=== PATIENT | female | born 1930 | race Hispanic/Latino ===

== ENCOUNTER 2019-10-31 05:57 | Day surgery (SDC) | payer OTHER ==
[2019-10-31] VITALS (9 sets, daily range): BP systolic 110–164; BP diastolic 41–94
--- NOTE | 2019-10-31 06:20 | NUR ---
PRE-PROCEDURE RECEIVED FROM HOME TO DAY 15 FOR SCHEDULED RIGHT AND LEFT HEART CATH. AWAKE IN NO ACUTE DISTRESS. DENIES CHEST PAIN AT PRESENT TIME. CONNECTED TO CONTINUOUS CARDIOPULMONARY MONITORING. SIDE RAILS UP X2, BED IN LOWEST POSITION, AND CALL LIGHT W/IN REACH. MURMUR AUSCULTATED.
[2019-10-31 07:14] LABS: BASOPHILS % (AUTO) 0.4 % (0.0-5.0); EOSINOPHILS % (AUTO) 2.3 % (0.0-8.0); HEMATOCRIT 35.2 % (36-48); LYMPHOCYTES % (AUTO) 18.2 % (21.0-51.0); MEAN CORPUSCULAR HEMOGLOBIN 27.5 pg (27.0-33.0); MEAN CORPUSCULAR HGB CONC 32.4 g/dL (32.0-36.0); MEAN CORPUSCULAR VOLUME 84.8 fL (79-99); MONOCYTES % (AUTO) 8.1 % (3.0-13.0); NEUTROPHILS % (AUTO) 70.8 % (40.0-77.0); PLATELET COUNT (AUTO) 191 K/uL (130-400); RED BLOOD CELL COUNT(AUTO) 4.15 MIL/uL (4.00-5.50); RED CELL DISTRIBUTION WIDTH 12.6 % (11.0-15.5); WHITE BLOOD COUNT (AUTO) 5.7 K/uL (4.8-10.8)
[2019-10-31 07:15] LABS: APPEARANCE,URINE Clear (CLEAR); BILIRUBIN,URINE Negative (NEGATIVE); COLOR,URINE Yellow (YELLOW); GLUCOSE, URINE (UA) Negative (NEGATIVE); KETONES,URINE Negative (NEGATIVE); LEUKOCYTE ESTERASE ,URINE Small (NEGATIVE); NITRATE,URINE Negative (NEGATIVE); OCCULT BLOOD,URINE Negative (NEGATIVE); PROTEIN,URINE Negative (NEGATIVE)
[2019-10-31 07:23] LABS: BACTERIA,URINE Rare /HPF (None Seen); RBC,URINE 0-1 /HPF (0-1); SQUAMOUS EPITHELIAL CELL,UR Moderate /HPF (0-2)
[2019-10-31 07:25] LABS: CREATININE 1.1 mg/dL (0.5-1.5); POTASSIUM 3.7 mmol/L (3.5-5.1)
[2019-10-31 07:27] LABS: INR 0.95 (0.85-1.15); PARTIAL THROMBOPLASTIN TIME 27.2 SEC (26.3-35.5); PROTHROMBIN TIME 10.3 SEC (9.6-11.6)
[2019-10-31] MEDS ORDERED: SODIUM CHLORIDE 0.9% 1000ML 1,000 ML IV ONE (08:35)
[2019-10-31] MEDS ORDERED: ALEN70TA69 PO (08:39)
[2019-10-31] MEDS ORDERED: SERT25TA5 PO (08:39)
[2019-10-31] MEDS ORDERED: HYDR12.54 PO (08:39)
[2019-10-31] MEDS ORDERED: SIMV-43 PO (08:39)
[2019-10-31] MEDS ORDERED: BIVALIRUDIN 250 MG/VIAL IV ONE (09:21)
[2019-10-31] MEDS ORDERED: NITROGLYCERIN 2 MG/VIAL VIAL IV ONE (09:22)
[2019-10-31] MEDS ORDERED: IOHEXOL-350 50ML VIAL IV ONE (09:22)
[2019-10-31] MEDS ORDERED: MIDAZOLAM HCL 1 MG/ML 2ML VIAL ONE (09:22)
[2019-10-31] MEDS ORDERED: LIDOCAINE HCL 2% 20ML ONE (09:22)
[2019-10-31] MEDS ORDERED: HEPARIN SODIUM 1000UNIT/ML 10ML VIAL ONE (09:22)
[2019-10-31] MEDS ORDERED: IOHEXOL 350 MG/ML 100ML INFUS..BTL IV ONE (09:22)
--- NOTE | 2019-10-31 09:25 | NUR ---
PROCEDURE TRANSFERRED TO GEOTECHNICIAL PROPERTIES TECHNICIAN VIA BED BY NATALIA LOZOYA RN. AWAKE IN NO ACUTE DISTRESS.
[2019-10-31] MEDS ORDERED: SODIUM CHLORIDE 0.9% 1000ML 1,000 ML IV SCH (11:15)
--- NOTE | 2019-10-31 11:20 | NUR ---
POST-PROCEDURE RECEIVED FROM COLLECTIONS PROFESSIONAL VIA BED S/P LT AND RHC. AWAKE IN NO ACUTE DISTRESS. DENIES PAIN. CONNECTED TO CONTINUOUS CARDIOPULMONARY MONITORING. PERCLOSE DRESSING TO RIGHT FEMORAL CLEAN, DRY, AND INTACT;SITE SOFT, NON-TENDER. EDUCATED PT TO KEEP LEG STRAIGHT AND HEAD FLAT. PT VERBALIZED UNDERSTANDING. SIDE RAILS UP X2, BED IN LOWEST POSITION, AND CALL LIGHT W/IN REACH.
--- NOTE | 2019-10-31 14:20 | NUR ---
discharge instructions instructions given to josie daughter via phone. informed her of script also. daughter voiced understanding. parveen pts transportation was informed to [facility] on the way home and voiced understanding.
--- NOTE | 2019-10-31 14:28 | NUR ---
ACTIVITY HOB ELEVATED TO 25 DEGREES. CATH SITE W/O SIGNS OF BLEEDING; PERCLOSE DRESSING CLEAN, DRY, AND INTACT; SITE SOFT, NON-TENDER.
--- NOTE | 2019-10-31 14:30 | NUR ---
DIET ATE 75% OF LUNCH.
--- NOTE | 2019-10-31 15:00 | NUR ---
ACTIVITY UP TO CHAIR WITH MINIMAL ASSIST OF 1. GAIT STEADY.
--- NOTE | 2019-10-31 15:35 | NUR ---
CONSULT PT WANTING TO LEAVE HOME. PER PT HER RIDE IS HERE AND SHE MAY NOT HAVE SOMEONE TO PICK HER UP LATER. EXPLAINED TO HER THAT SURGEON PENDING TO COME BY. PT STATES "THEY CAN JUST CALL ME AT HOME" SPOKE WITH LAUREN ESPINOZA RN FOR DR. NAM REPORTS THEY WILL CALL PT FOR APPOINTMENT.
--- NOTE | 2019-10-31 15:50 | NUR ---
DISCHARGE DISCHARGED VIA W/C. AWAKE IN NO ACUTE DISTRESS.
== END 2019-10-31 15:45 | disposition home or self-care (01) ==
LOC: DAH 05:57 → EDSTATUS 09:00 → DAH 15:45
PROVIDERS: ATTEND Internal Medicine Cardiovascular Disease
DX: I35.0 Nonrheumatic aortic (valve) stenosis (principal); I25.10 Atherosclerotic heart disease of native coronary artery without angina pectoris; E78.5 Hyperlipidemia, unspecified; J44.9 Chronic obstructive pulmonary disease, unspecified; I12.9 Hypertensive chronic kidney disease with stage 1 through stage 4 chronic kidney disease, or unspecified chronic kidney disease; N18.3 Chronic kidney disease, stage 3 (moderate); I34.0 Nonrheumatic mitral (valve) insufficiency; Z98.41 Cataract extraction status, right eye; Z98.42 Cataract extraction status, left eye; Z79.899 Other long term (current) drug therapy; Z87.891 Personal history of nicotine dependence; Z98.890 Other specified postprocedural states
CPT/HCPCS: 36415; 71045; 80048; 81001; 85025; 85610; 85730; 93005; 93460; 93567; A4215; A4216; A4221; A4222; A4223 ×3; A4606; A4663; C1760; C1769; C1893; C1894 ×2; J1644; J3490 ×2; J7030; Q9965; Q9967 ×2; J0583; J2250

== ENCOUNTER → 2019-11-06 | Outpatient (CLI) | payer OTHER ==
[~2019-11-06] MED LIST: ALEN70TA69 PO; HYDR12.54 PO; IOHEXOL 350 MG/ML 100ML INFUS..BTL IV ONE; SERT25TA5 PO; SIMV-43 PO
== END | disposition home or self-care (01) ==
LOC: RAH 09:45
PROVIDERS: ATTEND Internal Medicine Cardiovascular Disease
DX: K44.9 Diaphragmatic hernia without obstruction or gangrene (principal); I35.0 Nonrheumatic aortic (valve) stenosis; J98.11 Atelectasis; J43.9 Emphysema, unspecified; I70.0 Atherosclerosis of aorta; I25.10 Atherosclerotic heart disease of native coronary artery without angina pectoris; N28.1 Cyst of kidney, acquired; K57.30 Diverticulosis of large intestine without perforation or abscess without bleeding; N85.8 Other specified noninflammatory disorders of uterus
CPT/HCPCS: 74174; 75574; Q9967